=== PATIENT | male | born 1955 ===

== ENCOUNTER → 2018-12-02 12:04 | Outpatient (CLI) | payer OTHER ==
[~2018-12-02 12:04] MED LIST: AVAPRO75 MG PO; SINGULAIR10 MG PO
== END | disposition home or self-care (01) ==
LOC: LAB 12:04
DX: J20.0 Acute bronchitis due to Mycoplasma pneumoniae (principal); J11.1 Influenza due to unidentified influenza virus with other respiratory manifestations